=== PATIENT | male | born 1980 | race American Indian/Alaskan Native ===

== ENCOUNTER 2018-08-21 17:47 | Emergency (ER) | payer SELFPAY ==
[2018-08-22 00:49] VITALS: BP 160/82
[2018-08-22] MEDS ORDERED: ULTRAM PO ONE (01:06)
--- NOTE | 2018-08-22 01:20 | Emergency Department Report ---
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 pain is exacerbated by weight bearing pain is relieved by rest. Complaint: foot injury Onset/Timin -: days(s) Injury: Foot: Left Type of Injury: hyperextension Place: work Severity: moderate Severity scale (0 -10): 6 Improves With: rest Worsens With: weight bearing, movement, palpation Associated Symptoms: snap/pop sensation, able to partially bear weight - Related Data Previous Rx's Medication Instructions Recorded Last Taken Type Naproxen 500 mg PO BID PRN #30 tablet 08/22/18 Unknown Rx Allergies Allergy/AdvReac Type Severity Reaction Status Date / Time No Known Allergies Allergy Verified 08/22/18 00:49 ED Review of Systems ROS: Stated complaint: FOOT PAIN Other details as noted in HPI Constitutional: denies: chills, fever Eyes: denies: eye pain, eye discharge, vision change ENT: denies: ear pain, throat pain Respiratory: denies: cough, shortness of breath, wheezing Cardiovascular: as per HPI Endocrine: no symptoms reported Gastrointestinal: denies: abdominal pain, nausea, diarrhea Genitourinary: denies: urgency, dysuria Musculoskeletal: other (foot pain ). denies: back pain, joint swelling, arthralgia Skin: denies: rash, lesions Neurological: denies: headache, weakness, paresthesias Psychiatric: denies: anxiety, depression Hematological/Lymphatic: denies: easy bleeding, easy bruising ED Past Medical Hx - Past Medical History Previous Medical History?: Yes Additional medical history: Dislocated left elbow - Surgical History Past Surgical History?: No - Social History Smoking Status: Current Every Day Smoker Substance Use Type: Alcohol - Medications Home Medications: Home Medications Medication Instructions Recorded Confirmed Last Taken Type Naproxen 500 mg PO BID PRN #30 tablet 02/06/19 Unknown Rx ED Physical Exam - General Limitations: No Limitations General appearance: alert, in no apparent distress - Head Head exam: Present: atraumatic, normocephalic - Eye Eye exam: Present: normal appearance - ENT ENT exam: Present: mucous membranes moist - Neck Neck exam: Present: normal inspection - Respiratory Respiratory exam: Present: normal lung sounds bilaterally. Absent: respiratory distress - Cardiovascular Cardiovascular Exam: Present: regular rate, normal rhythm. Absent: systolic murmur, diastolic murmur, rubs, gallop - GI/Abdominal GI/Abdominal exam: Present: soft, normal bowel sounds - Rectal Rectal exam: Present: deferred - Extremities Exam Extremities exam: Present: normal inspection, full ROM, tenderness (left heel pain plantar region pain no ecchymosis no swelling no deformity ), normal capillary refill. Absent: pedal edema, joint swelling, calf tenderness - Expanded Lower Extremity Exam Left Foot/Toe exam: Present: tenderness, calcaneal tenderness. Absent: swelling, abrasion, laceration, ecchymosis, deformity, crepidus, dislocation, erythema, amputation, puncture wound, foreign body, tenderness at base of 5th metatarsal, nail avulsion, subungual hematoma Neuro vascular tendon exam: Present: no vascular compromise Gait: Positive: observed and limited by pain - Back Exam Back exam: Present: normal inspection, full ROM. Absent: tenderness, CVA tenderness (R), CVA tenderness (L) - Neurological Exam Neurological exam: Present: alert, oriented X3, CN II-XII intact, normal gait, reflexes normal. Absent: motor sensory deficit - Psychiatric Psychiatric exam: Present: normal affect, normal mood - Skin Skin exam: Present: warm, dry, intact, normal color. Absent: rash ED Course Vital Signs 08/22/18 00:44 Temperature 98.0 F Pulse Rate 80 Respiratory 18 Rate Blood Pressure 160/82 O2 Sat by Pulse 100 Oximetry ED Lower Extremity MDM - Radiology Data Radiology results: image reviewed no fracture no soft tissue abnormality - Medical Decision Making foot xray no fracture no soft tissue abnormality. this is likely plant fascititis plan: shoe inserts nsaids rest follow up with pcp in 2-3 days pt verbalized agreement and understanding of discharge plan. Critical care attestation.: If time is entered above; I have spent that time in minutes in the direct care of this critically ill patient, excluding procedure time. ED Disposition Clinical Impression: Plantar fasciitis of left foot Disposition: DC- TO HOME OR SELFCARE Is pt being admited?: No Does the pt Need Aspirin: No Condition: Undetermined Instructions: Plantar Fasciitis (ED) Prescriptions: Naproxen 500 mg PO BID PRN #30 tablet PRN Reason: pain Referrals: [facility] [Outside] - 3-5 Days ETHEL TAPIA DPM [Referring] - 3-5 Days Forms: Work/School Release Form(ED) Time of Disposition: 01:29
--- NOTE | 2018-08-22 01:43 | XRay Report ---
FINAL REPORT PROCEDURE: XR FOOT 3+V LT TECHNIQUE: LEFT foot radiographs, AP, lateral, and oblique views. CPT 13190 HISTORY: foot pain COMPARISON: No prior studies are available for comparison. FINDINGS: Fracture (s) and/or Dislocation(s): None . Alignment: Normal . 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 Soft tissues: Normal . Bone mineralization: Normal . Foreign bodies: None . Calcaneal spurring: None . There is a 12 x 7 millimeter lucency in the 1st metatarsal bone which could be incidental intraosseou s lipoma or enchondroma. IMPRESSION: There is no fracture or malalignment. 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 There is a 12 x 7 millimeter lucency in the 1st metatarsal bone which could be incidental intraosseou s lipoma or enchondroma.
== END 2018-08-22 02:12 | disposition home or self-care (01) ==
LOC: ED 17:47
DX: M72.2 Plantar fascial fibromatosis (principal); F17.200 Nicotine dependence, unspecified, uncomplicated
CPT/HCPCS: 99283